=== PATIENT | male | born 1970 | race Caucasian/White ===

== ENCOUNTER 2016-09-13 06:26 | Observation (INO) | payer OTHER ==
--- NOTE | ~2016-09-13 | CT71 ---
[facility] A Service [facility] RADIOLOGY TEXT RESULTS PATIENT: ROBERT JENKINS LOCATION: [facility] 331- : 72 UNIT #: [id number] AGE: [address]: Esmer Colvin MD SEX: M ORDER DR: [id number] [address] [address] [id number] I MR#: [id number] Acc #: [id number] NAME: ROBERT JENKINS : 1970 SEX: M STUDY DATE/TIME: 09/13/2016 7:54 UNIT: CEDOF ROOM: 85851 STUDY DESCRIPTION: CT Head Wo Contrast Attending Physician: Esmer Colvin M.D. Ordering Physician: Ilan Westfall M.D. Primary Care Physician: Jitendra Wakefield M.D. MEDICAL IMAGING REPORT This report is preliminary unless electronic signature is present EXAM Head CT no contrast, 09/13/2016 PROCEDURE Axial unenhanced head CT. This CT exam was performed with one or more of the following radiation dose reduction techniques: automatic exposure control, adjustment of mA and/or kV according to patient size, and iterative reconstruction. COMPARISON None HISTORY Headache with left facial numbness since September 12, 2016. Transient episode of left monocular vision loss, now resolved. FINDINGS There is no intracranial hemorrhage or mass. There is no hydrocephalus or extraaxial fluid collection. The brain is structurally normal and brain parenchymal density is normal. The extracranial soft tissues, including the orbital and ocular soft tissues appear normal. The skull base and calvaria are normal. IMPRESSION Normal negative unenhanced head CT. Dictated by... Alon Yip M.D. [facility] A Service [facility] RADIOLOGY TEXT RESULTS PATIENT: ROBERT JENKINS LOCATION: [facility] 331- : 74 UNIT #: [id number] AGE: [address]: Esmer Colvin MD SEX: M ORDER DR: THIS IS AN ELECTRONICALLY VERIFIED REPORT Alon Yip M.D. at 09/15/2016 2:17 PM DRE/jose f TD: 09/13/2016 09:15 JOB #: [id number] MEDICAL IMAGING REPORT Page 1 of 1 COPY
--- NOTE | ~2016-09-13 | DS ---
Unit #: [id number] #: [id number] Patient: ROBERT JENKINS [id number] [address] [address] [id number] I MR#: [id number] NAME: ROBERT JENKINS ROOM: 331 Age: 46 Sex: M Admission Date: 09/13/2016 : 1970 Discharge Date: 09/13/2016 Attending Physician: Esmer Colvin M.D. Primary Care Physician: Jitendra Wakefield M.D. DISCHARGE SUMMARY ADDENDUM ADDITIONAL DISCHARGE DIAGNOSES Small mass lesion of the sella. The patient will follow up with Dr. Song regarding possible TIA versus atypical migraine, as well as mass lesion in the sella. He was given an order for MRI of the sella with and without contrast to get an as outpatient by Dr. Lopez. Dictated by... Darius Baum/krish TD: 09/13/2016 21:12 JOB #: [id number] DISCHARGE SUMMARY Page 1 of 1 X Esmer Colvin MD X DISCHARGE SUMMARY
--- NOTE | ~2016-09-13 | EKG ---
PATIENT: ROBERT JENKINS UNIT #: [id number] Ventricular Rate: 58 BPM Atrial Rate: 58 BPM P-R Interval: 132 ms QRS Duration: 94 ms Q-T Interval: 402 ms QTC Calculation(Bezet): 394 ms Calculated R [place]: -37 degrees Calculated T [place]: 1 degrees Diagnosis Line: Sinus bradycardia Diagnosis Line: Left axis deviation Diagnosis Line: Incomplete right bundle branch block Diagnosis Line: Abnormal ECG Diagnosis Line: No previous ECGs available Diagnosis Line: Confirmed by BENJAMIN GREEN MD ([id number]) on 09/14/2016 Diagnosis Line: 6:29:45 PM INTERPRETING MD: PETER MOHR
--- NOTE | ~2016-09-13 | CT23 ---
[facility] A Service of [facility] RADIOLOGY TEXT RESULTS PATIENT: ROBERT JENKINS LOCATION: [place] [address]- : 74 UNIT #: [id number] AGE: [address]: Esmer Colvin MD SEX: M ORDER DR: [id number] [address] [address] [id number] I MR#: [id number] Acc #: [id number] NAME: ROBERT JENKINS : 1970 SEX: M STUDY DATE/TIME: 09/13/2016 10:23 UNIT: [facility] ROOM: 68756 STUDY DESCRIPTION: CT Angio Neck Attending Physician: Esmer Colvin M.D. Ordering Physician: Esmer Colvin M.D. Primary Care Physician: Jitendra Wakefield M.D. MEDICAL IMAGING REPORT This report is preliminary unless electronic signature is present EXAM CT angiogram of the neck HISTORY FINDINGS Please see CT angiogram of the head for results. Dictated by... Zoie Beltran M.D. THIS IS AN ELECTRONICALLY VERIFIED REPORT Zoie Beltran M.D. at 09/13/2016 2:30 PM Wilfred TD: 09/13/2016 12:10 JOB #: [id number] MEDICAL IMAGING REPORT Page 1 of 1 COPY
--- NOTE | ~2016-09-13 | MR18 ---
[facility] A Service of [facility] & [facility] RADIOLOGY TEXT RESULTS PATIENT: ROBERT JENKINS LOCATION: [facility] 331-01 : 74 UNIT #: [id number] AGE: [address]: Esmer Colvin MD SEX: M ORDER DR: [id number] [facility] [address] [place], [place] [address] [id number] I MR#: [id number] Acc #: [id number] NAME: ROBERT JENKINS : 1970 SEX: M STUDY DATE/TIME: 09/13/2016 12:09 UNIT: [address] ROOM: [facility] STUDY DESCRIPTION: MR Brain Wo Contrast Attending Physician: Esmer Colvin M.D. Ordering Physician: Esmer Colvin M.D. Primary Care Physician: Jitendra Wakefield M.D. MRI CENTER REPORT This report is preliminary unless electronic signature is present. EXAM Brain MRI without HISTORY TIA, episode of facial paresthesia and abnormal vision last evening at about 08:00 p.m. He lost vision completely and in his left eye lasting for a few seconds and awoke this morning with left-sided facial numbness. COMMENT MRI of the brain was performed without contrast using routine 1.5T imaging technique. There is earlier head CT from the same day. There is no evidence for a recent ischemic insult on the diffusion series. There is no MRI evidence for intracranial hemorrhage. There is a lesion in the posterior aspect of the sella about 3 mm AP dimension 5 mm SI dimension and 7-8 mm ML dimension. It is not fully characterized. It could be a cystic or solid lesion such as a pituitary cyst or microadenoma. Please correlate for any clinical evidence of endocrine abnormality and please correlate with a followup MRI of the sella with and without contrast. It does not appear to result in mass effect upon adjacent structures though there may be some mild bony remodeling of the posterior clinoid. This is probably unrelated to current presentation. The ventricles are normal in size and configuration. Albarran-white junction is essentially age-appropriate. There is minor mucosal disease in the ethmoid air cells and polypoid mucosal disease in the maxillary antra but there is no sinus air-fluid level. The major intracranial flow voids are maintained. Borderline volume loss for age group. No other possible intracranial mass lesion is suspected. IMPRESSION 1. There is no evidence for a recent ischemic insult on the diffusion STS. [facility] A Service of [facility] & [facility] RADIOLOGY TEXT RESULTS PATIENT: ROBERT JENKINS LOCATION: [facility] 331-01 : 74 UNIT #: [id number] AGE: [address]: Esmer Colvin MD SEX: M ORDER DR: series. 2. There is a small mass lesion in the posterior aspect of the sella which is currently incompletely characterized but could be a small microadenoma or pituitary cyst and it should be further characterized with an MRI of the sella with and without contrast. Please correlate as well for clinical evidence of endocrine abnormality. 3. Paranasal sinus disease without sinus air-fluid level. 4. Borderline volume loss for age group. STAT * RESULT Dictated by... Zoie Beltran M.D. THIS IS AN ELECTRONICALLY VERIFIED REPORT Zoie Beltran M.D. at 09/13/2016 2:31 PM BRUNO/lisa TD: 09/13/2016 13:00 JOB #: [id number] MRI CENTER REPORT Page 1 of 1 COPY
--- NOTE | ~2016-09-13 | CO ---
Unit #: [id number] #: [id number] Patient: ROBERT JENKINS [id number] [facility] [address] [facility] [place], [place] [address] [id number] I MR#: [id number] NAME: ROBERT JENKINS ROOM: 331 Age: 46 Sex: M Admission Date: 09/13/2016 : 1970 Attending Physician: Esmer Colvin M.D. Primary Care Physician: Jitendra Wakefield M.D. Consultation Date: 09/13/2016 CONSULTATION REPORT CONSULTING PHYSICIAN Dr. Esmer Colvin REASON FOR CONSULT Abnormal vision and paresthesia. PATIENT IDENTIFICATION This is a 46-year-old, right handed, male evaluated initially in the ER T1 and then followup in room 331 at [facility]. SOURCE OF INFORMATION Obtained from the patient as well as medical record. HISTORY OF PRESENT ILLNESS This is a very pleasant 46-year-old, right handed, male with no prior significant past medical history other than migraine headaches, who presents to [facility] with complaints of vision changes and left facial numbness. The patient states that he was in his usual state of health until the day prior to admission whenever he was sitting down watching TV. He states that he was watching Jeopardy when he suddenly felt as though he had vision loss in his left eye. He initially felt as though it was complete vision loss in his left eye though when Dr. Lopez discussed with him he was more clear on it being left sided vision loss affecting both eyes, more consistent with a left hemianopia than a left amaurosis fugax. He states that he felt as though he was getting a mild headache but reports that it was not like a typical migraine for him in that the symptoms went away. He decided not to come to the ER as symptoms had resolved though he states he felt very concerned but he never experienced symptoms like that before. He denies any exacerbating or alleviating factors or any other associated symptoms. He states that he went to bed though he states he woke up a few time sin the middle of the night and just "didn't feel right." He woke up around 4:30 in the morning to get ready for work and states that he noticed left facial tingling. He states it felt as though the left lower portion of his face was numb and felt as though he had some "dental work." He states that symptoms improved but did not fully resolve. Thus, he decided to come to the ER for further evaluation. He states the symptoms are essentially resolved currently. He states that he has never experienced symptoms like this and he has had some peripheral blurred vision with headaches in the past but reports that he knows exactly how it feels and that he is going to get a headache whenever he exhibits his symptoms. He states that this was completely different in that he had not experienced these symptoms before. He denies any speech or swallowing difficulty, any chest pain, shortness Unit #: [id number] #: [id number] Patient: ROBERT JENKINS of . He does report that he felt as though he may have had some palpitations when he experienced the vision loss but he states that he also felt anxious. He denies any focal arm or leg paresthesia or weakness though he reports that he felt as though his left leg didn't feel right when he experienced the vision changes. Again, all of these symptoms have resolved. He was admitted to [facility] for further workup and evaluation given his focal presentation and concern for ischemic event. He underwent an extensive workup here. He was seen this morning by myself and then re-evaluated by Dr. Lopez today as well. Dr. Lopez had a long discussion with the patient. Please see his note for details. MRI of the brain did not show any acute ischemic changes. It did show a small mass lesion in the posterior aspect of the patella, currently incompletely characterized but could be a small microadenoma or pituitary cyst. It could be further characterized with an MRI of the sella with and without contrast. It also, surprisingly, shows some borderline volume loss for his age group. He underwent a CT angiogram of the head and neck in the ER that shows no stenosis at either carotid bifurcation by NASCET criteria with both vertebral arteries patent and fairly balanced and both supply the basilar artery. 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 The patient, of note on this exam, does appear to have a tiny anterior communicator and small bilateral posterior communicators with what are probably infundibula at the origins of the right and left posterior communicators. The left sided infundibulum is a bit more rounded than typical and, for this reason, followup over residential is recommended. 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 His initial CT of the head without contrast in the ER was normal. He also had a chest x-ray done in the ER that was negative. Given the patient's presentation nand evaluation, Dr. Lopez recommended the patient undergo a transesophageal echocardiogram. Given his young age and focal recurrent event x2, Dr. Lou did a transesophageal echocardiogram today which showed left ventricular systolic function mildly reduced with LVEF of 45%, mild global hypokinesis of the left ventricle. Bubble study was performed with right to left shunt noted across the intraatrial septum consistent with patent foramen ovale. Patent foramen ovale with right to left shunt was visualized. No clot in the left atrial appendage, no vegetation. Normal valvular function. No evidence of pericardial effusion. Of note, also on the SAM it did show moderate to severe atherosclerotic plaque in the aorta with no protruding atheroma or clot into the area of the lumen. I did discuss these results personally with Dr. Lou and the finding of vascular sclerosis, especially given his age, is concerning. However, there is no protruding atheroma into the aortic lumen. Given his ejection fraction, she has recommended and started him on a low dose [place] inhibitor. He does have build-up of atherosclerosis inside the aorta but, given there is no protruding atheroma or fresh clot in the aortic lumen, anticoagulation is not recommended. The patient has been started on a statin as well as aspirin. PAST MEDICAL HISTORY Migraine headaches. Otherwise, the patient denies any significant past medical history. He states that he does not see a primary care physician on a regular basis and has not sought treatment in the last couple of years since he last was treated for a left inguinal hernia repair and umbilical hernia repair. He also has a history of appendectomy. Unit #: [id number] #: [id number] Patient: ROBERT JENKINS S FAMILY HISTORY Positive for stroke in his paternal grandfather, not at a young age. Also, positive for his dad having lung cancer. SOCIAL HISTORY The patient is and lives with his . He quit smoking about ten years ago. He does drink alcohol on the weekend and does admit that he may drink up to 12 beers on a Sunday but states he has never had any episodes of binge drinking or gone through withdrawal. He denies drinking through the week. He works at the [employer]. He denies illicit drug use. ALLERGIES No known drug allergies. HOME MEDICATIONS None. He states he takes occasional ibuprofen as needed for headaches but, otherwise, does not take any [id number] prescription medications. REVIEW OF SYSTEMS Fourteen point review of systems is done. Pertinent positives are as listed above, otherwise negative. He denies any recent illness or injury, change in weight or routine. Otherwise, positives as discussed above. PHYSICAL EXAMINATION VITAL SIGNS: Temperature 98.5, pulse 55, respirations 20, blood pressure 133/84. His diastolic was slightly over 100 in the ER. Oxygen saturation 98%. Height 5 feet 10 inches, weight 175 pounds. BMI 25. NEUROLOGICAL EXAM: The patient is currently awake, alert and oriented to person, place and time as well as events. No right/left confusion, no finger agnosia. No aphasia, dysarthria or apraxia. CRANIAL NERVE EXAM: He demonstrates full mcfarlane of vision. Eyes are conjugate without ptosis or nystagmus. Extraocular movements are intact. Sensation of face and scalp is intact. Strength of muscles of facial expression is intact. Hearing is intact to finger rub and conversation. Tongue is midline, uvula is midline. Palate elevation is normal. Head turning and shoulder shrug is unremarkable. Neck is supple. MOTOR EXAM: He demonstrates normal bulk and tone. Strength is equal, 5 out of 5, in all extremities. SENSORY EXAM: Intact. No extinction appreciated. GAIT AND ROMBERG: Deferred. REFLEXES: 1 out of 4. Toes are equivocal. COORDINATION: Unremarkable. DIAGNOSTIC STUDIES IMAGING: Please see above. LABORATORY: ESR 6, ERP less than 0.5, troponin less than 0.03. PT 10.5, INR 1.0, PTT 25.5. BMP unremarkable. Urine drug screen unremarkable. CBC - unremarkable. TSH 1.92. IMPRESSION 1. Vision changes most concerning for left visual field cut and left Unit #: [id number] #: [id number] Patient: ROBERT JENKINS S facial paresthesia most consistent with right hemispheric transient ischemic attack, concerning for two events: Differential diagnosis to include transient ischemic attack versus migraine. MRI of the brain is negative for any evidence of acute or subacute infarct. It does show an incidental finding and possible pituitary adenoma. 2. Abnormal MRI of the brain/incidental pituitary lesion: Recommend followup imaging as discussed above. 3. Abnormal CT angiogram with incidental findings of infundibula. Recommend outpatient MR angiogram of [place] as discussed above. 4. Atherosclerosis of aorta with no protruding aortic atheroma or clot. 5. Mildly reduced ejection fraction of 45%. 6. Patent foramen ovale. 7. Reformed smoker for 10+ years. PLAN The case was discussed with Dr. Lopez. Also, SAM was discussed with Dr. Lou. The patient was seen by Dr. Lopez. Please see his extensive note in the chart. I saw the patient twice as well. Extensive workup has been ordered. He certainly is young at 46 years of age to be exhibiting symptoms concerning for an ischemic event. His MRI of the brain is negative for any acute or subacute infarct but abnormal findings are as discussed above and recommend outpatient followup with MRI of the pituitary and MR angiogram of [place]. Dr. Lopez has given him specific instructions for followup with neurology. He is to call to make an appointment with Dr. Pa Song and has been given instructions on recommendation for plan of care. Dr. Lopez has ordered a hypercoagulable workup which will also need to be followed up on and I have also ordered a B12 and folate. Given his differential diagnosis and given his SAM findings, again, he is to follow up with Dr. Lou with cardiology and an appointment has already been made with her to have further cardiology workup. He is recommended to have a Holter monitor. He has been started on a low dose [place] inhibitor. We have started him on full dose aspirin and also Lipitor 40 mg p.o. q. h.s. This has been explained to the patient at length. At this time, no further workup is indicated as an inpatient. We are treating him for possible TIA and further workup pending re-evaluation with outpatient neurology. Again, hypercoagulable workup has been ordered and cardiology evaluation as an outpatient has been scheduled given his abnormal SAM findings. At this time, anticoagulation with warfarin is not indicated. Will start the patient on full dose antiplatelet therapy and extensive statin therapy and recommend that he continue with smoking cessation. He states that he has not smoked in ten years. Hypercoagulable workup has been ordered and is pending and also recommend outpatient MR imaging for normal MRI and abnormal CTA as discussed above. The patient is agreeable and wishes to be discharged home. He is neurologically back to baseline. Thus, physical therapy and speech therapy are not indicated prior to discharge. Please see note per Dr. Lopez. Please see orders. Please call for any questions or issues. We thank you very much for allowing us to assist in the care of this patient. Dictated by... Jennifer Benoit A.P.R.N. for Cassi Lopez M.D. Unit #: [id number] #: [id number] Patient: ROBERT JENKINS KSM/df TD: 09/14/2016 06:06 JOB #: [id number] CONSULTATION REPORT Page 1 of 1 X Jennifer Benoit [employer] X CONSULTATION REPORT
--- NOTE | ~2016-09-13 | EKG ---
PATIENT: ROBERT JENKINS UNIT #: [id number] Ventricular Rate: 52 BPM Atrial Rate: 52 BPM P-R Interval: 136 ms QRS Duration: 96 ms Q-T Interval: 418 ms QTC Calculation(Bezet): 388 ms P [place]: -26 degrees Calculated R [place]: -36 degrees Calculated T [place]: 4 degrees Diagnosis Line: Sinus bradycardia Diagnosis Line: Left axis deviation Diagnosis Line: Minimal voltage criteria for LVH, may be normal Diagnosis Line: variant Diagnosis Line: Abnormal ECG Diagnosis Line: No previous ECGs available Diagnosis Line: Confirmed by BENJAMIN GREEN MD ([id number]) on 09/14/2016 Diagnosis Line: 6:35:56 PM INTERPRETING MD: PETER MOHR
--- NOTE | ~2016-09-13 | HP ---
Unit #: [id number] #: [id number] Patient: ROBERT JENKINS [id number] [facility]. [place], [place] [address] [id number] MR#: [id number] NAME: ROBERT JENKINS. ROOM: 331 Age: 46 Sex: M Admission Date: 09/13/2016 : 1970 Attending Physician: Esmer Colvin M.D. Primary Care Physician: Jitendra Wakefield M.D. HISTORY AND PHYSICAL CHIEF COMPLAINT Abnormal vision. HPI The patient is a 46-year-old male with a past medical history of migraine headaches who presented to the emergency department for evaluation of the above. The patient states that he was in his usual state of health until the evening prior to admission when he had the sudden onset of loss of vision in the left eye. He states that he was watching Jeopardy and it was like a curtain went from left to right in front of his left eye. He states that it lasted for 5-10 seconds and resolved spontaneously. He states that he has had abnormal vision in the past that involved his peripheral vision in association with migraine aura. This morning he awoke (1) numbness involving the left cheek. That has improved, but is still present. He presented to the emergency department for further evaluation. In the emergency department, a CT of the head was done and showed nothing acute. Laboratory essentially unremarkable. He is being admitted to [facility] for evaluation and further treatment. PAST MEDICAL HISTORY 1. No hospital admissions as an adult. 2. Migraine headaches. He states that he typically gets 4-6 a year. PAST SURGICAL HISTORY 1. Left inguinal hernia repair. 2. Umbilical hernia repair. 3. Appendectomy. SOCIAL HISTORY The patient lives with his . He quit smoking. He drinks alcohol on the weekends. He states that he may drink up to 12 beers on a Sunday, but has never gone through withdrawal. He works at [employer]. FAMILY HISTORY Notable for his dad having lung cancer. His grandfather had a stroke. ALLERGIES No known allergies. HOME MEDICATIONS None. REVIEW OF SYSTEMS Unit #: [id number] #: [id number] Patient: ROBERT JENKINS A complete review of systems is negative, except as indicated in the HPI. DIAGNOSTIC STUDIES IMAGING: CT of the head shows nothing acute. LABORATORY: Comprehensive metabolic panel is completely normal. Urine tox screen is negative. Complete blood count is completely normal. PHYSICAL EXAM VITAL SIGNS: Temperature is 98.7, pulse 64, respirations 17, blood pressure 145/94, and oxygen saturation is 96% on room air. GENERAL: The patient is a pleasant, male who is awake and alert in no acute distress. HEENT: The head is atraumatic. Mucous membranes are moist. NECK: Supple. Trachea is midline. CARDIOVASCULAR: Regular rate and rhythm. LUNGS: Clear to auscultation bilaterally with no increased work of breathing. ABDOMEN: Soft and nontender with bowel sounds present in all four quadrants. EXTREMITIES: Nontender with no pedal edema. NEUROLOGIC: The patient is awake and alert. He follows commands. Sensation of the face is subjectively intact. There is no facial asymmetry. Tongue is midline. There is no appreciable pronator drift. 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 SKIN: Skin of examined areas is warm and dry. PSYCH: Mood and affect are normal. The patient is cooperative. ASSESSMENT The patient is a 46-year-old male with: 1. Vision loss involving the left eye, amaurosis fugax. A CT of the head was negative. 2. Paresthesias involving left face. 3. History of migraines. 4. Former smoker. PLAN 1. Admit to intermediate level for observation. 2. Check MRI of the brain without contrast. 3. CT angiogram of the head and neck. 4. (2) per neurology. 5. Consult neurology regarding amaurosis fugax. 6. Additional workup and consultants based on above. 7. Repeat labs in the morning. 8. Aspirin if the patient has not already received. Dictated by Darius Baum/doroteo TD: 09/13/2016 13:08 JOB #: [id number] Unit #: [id number] #: [id number] Patient: ROBERT JENKINS HISTORY AND PHYSICAL Page 1 of 1 X Esmer Colvin MD X HISTORY AND PHYSICAL
--- NOTE | ~2016-09-13 | CR72 ---
[facility] A Service of [facility] RADIOLOGY TEXT RESULTS PATIENT: ROBERT JENKINS LOCATION: CEDOF : 74 UNIT #: [id number] AGE: [address]: Esmer Colvin MD SEX: M ORDER DR: [id number] [id number] [facility]. [place], [place] [address] [id number] MR#: [id number] Acc #: [id number] NAME: ROBERT JENKINS : 1970 SEX: M STUDY DATE/TIME: 09/13/2016 7:40 UNIT: ROXIE ROOM: STUDY DESCRIPTION: CR Chest Single View Portable Attending Physician: Mabel Davis A.P.R.N. Ordering Physician: Ed Doctor [id number] [facility] Primary Care Physician: Jitendra Wakefield M.D. MEDICAL IMAGING REPORT This report is preliminary unless electronic signature is present EXAM Frontal chest, 09/13/2016 INDICATION 46-year-old male with headache. Left-sided facial numbness, altered mental status and shortness of air that began this morning. TECHNIQUE Frontal chest was performed. COMPARISON There is a comparison on the archive from September 2013 that cannot be retrieved due to continuing computer malfunction. There are no comparisons at this time. FINDINGS Cardiac silhouette within normal limits. The vascularity is normal. Lungs are clear. No pneumothorax. Probable retained opaque metallic foreign body projects over the upper abdomen on the left. IMPRESSION Negative frontal chest. We have no comparisons at the time of this dictation. Dictated by... Scar Rodríguez M.D. THIS IS AN ELECTRONICALLY VERIFIED REPORT Scar Rodríguez M.D. at 09/13/2016 9:55 AM Jayro TD: 09/13/2016 09:10 JOB #: [id number] [facility] A Service [facility] RADIOLOGY TEXT RESULTS PATIENT: ROBERT JENKINS LOCATION: CEDOF : 74 UNIT #: [id number] AGE: [address]: Esmer Colvin MD SEX: M ORDER DR: MEDICAL IMAGING REPORT Page 1 of 1 COPY
--- NOTE | ~2016-09-13 | DS ---
Unit #: [id number] #: [id number] Patient: ROBERT JENKINS [id number] [address] [address] [id number] I MR#: [id number] NAME: ROBERT JENKINS ROOM: 331 Age: 46 Sex: M Admission Date: 09/13/2016 : 1970 Discharge Date: 09/13/2016 Attending Physician: Esmer Colvin M.D. Primary Care Physician: Jitendra Wakefield M.D. DISCHARGE SUMMARY HISTORY OF PRESENT ILLNESS The patient is a 46-year-old male with a past medical history of migraine headaches who presented to the emergency department for abnormal vision. Please see History and Physical for details. The patient was seen in consultation by Neurology. An MRI of the brain was done, as well as CT angiogram of the head and neck. He also underwent SAM that showed atherosclerotic plaque and an ejection fraction of 45%. Cardiology and Neurology both agreed that he was stable for discharge. He is being discharged home. DISCHARGE DIAGNOSES 1. Vision loss involving the left eye concerning for possible transient ischemic attack versus atypical migraine. 2. Paresthesias involving the left face again concerning for possible transient ischemic attack versus atypical migraine. 3. Atherosclerosis of the aorta. 4. Congestive heart failure with an ejection fraction of 45%. DISCHARGE MEDICATIONS 1. Aspirin 325 mg p.o. daily. 2. Lisinopril 5 mg p.o. daily. 3. Lipitor 10 mg p.o. daily. DISCHARGE CONDITION Stable. DISCHARGE DISPOSITION Home. DISCHARGE FOLLOWUP 1. With Cardiology on November 24. 2. [address] Dr[address] Song per Neurology. 3. With primary care physician in one to two weeks. 1. Dictated by... Darius Baum/krish TD: 09/13/2016 21:06 JOB #: [id number] Unit #: [id number] #: [id number] Patient: ROBERT JENKINS DISCHARGE SUMMARY Page 1 of 1 X Esmer Colvin MD X DISCHARGE SUMMARY
--- NOTE | ~2016-09-13 | CT17 ---
[facility] A Service of [facility] RADIOLOGY TEXT RESULTS PATIENT: ROBERT JENKINS LOCATION: A 331-01 : 74 UNIT #: [id number] AGE: [address]: Esmer Colvin MD SEX: M ORDER DR: [id number] [facility] [address] [facility]. [place], [place] [address] [id number] I MR#: [id number] Acc #: [id number] NAME: ROBERT JENKINS : 1970 SEX: M STUDY DATE/TIME: 09/13/2016 10:23 UNIT: CEDOF ROOM: 54889 STUDY DESCRIPTION: CT Angio Head Attending Physician: Esmer Colvin M.D. Ordering Physician: Esmer Colvin M.D. Primary Care Physician: Jitendra Wakefield M.D. MEDICAL IMAGING REPORT This report is preliminary unless electronic signature is present EXAM CT angiogram of the head and neck HISTORY Headache behind both eyes, left-sided facial numbness since 09/12/2016. No vision in left eye for 10 seconds on 09/12/2016. Amaurosis fugax. No history of cancer. No history of trauma. TECHNIQUE CT angiography of the head and neck vessels performed during the intravenous administration of 100 mL of Isovue 370. Imaging acquired in the axial plane followed by multiple reconstructed and reformatted images for the purpose of 3-D CT angiography of the head and neck vessels. This CT exam was performed with one or more of the following radiation dose reduction techniques: automatic exposure control, adjustment of mA and/or kV according to patient size, and iterative reconstruction. COMPARISON Head CT from earlier today. No radiologist was notified when the CT angiogram was read ready. FINDINGS CT ANGIOGRAM NECK: The aortic arch branch pattern is normal. There is hemodynamically significant narrowing at great vessel origins. The right carotid system is widely patent. By NASCET criteria, 0% stenosis at the right carotid bifurcation. The left carotid system is widely patent and by NASCET criteria 0% stenosis at the left carotid bifurcation. Left vertebral artery is widely patent. Right vertebral artery is widely patent. [facility] A Service of [facility] RADIOLOGY TEXT RESULTS PATIENT: ROBERT JENKINS LOCATION: C3A 331-01 : 74 UNIT #: [id number] AGE: [address]: Esmer Colvin MD SEX: M ORDER DR: Intracranial circulation evaluation shows no intracranial vascular cutoff. There is a tiny anterior communicator present. There are tiny bilateral posterior communicators with infundibulum type structure seen on the right and probable infundibulum on the left. Left-sided infundibulum is a little bit more rounded and I would therefore recommend a follow-up MR angiogram in a year to reassess for any changes. 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 No focal central stenosis. Otherwise no suspicion for possible intracranial aneurysm. Dural venous sinuses are patent. Mild paranasal sinus disease. No sinus air fluid level. CT angiography is not sensitive for aneurysm at the level of the skull base. This study is not intended to be sensitive for evaluation of ophthalmic arteries. They are too small to be accurately evaluated on a CT angiogram. Flow can be seen within the vessels but otherwise they cannot be evaluated further. IMPRESSION 1. By NASCET criteria, 0% stenosis at either carotid bifurcation. Both vertebral arteries are patent and fairly balanced and both supply the basilar. 2. There is no intracranial vascular cutoff or focal central stenosis. 3. The patient has a tiny anterior communicator and there are small bilateral posterior communicators with what are probably infundibulae at the origins of the right and left posterior communicators. The left-sided infundibulum is a bit more rounded than typical and for this reason I would recommend follow-up over the penitentiary. Recommend first follow-up study to be an MR angiogram [place] at one year and I would suggest consideration for terminal press operator follow-up to confirm penitentiary stability of the vascular findings. 4. Paranasal sinus disease without sinus air fluid level. STAT * RESULT Dictated by... Zoie Beltran M.D. THIS IS AN ELECTRONICALLY VERIFIED REPORT Zoie Beltran M.D. at 09/13/2016 2:31 PM BRUNO/jose f TD: 09/13/2016 12:11 JOB #: [id number] MEDICAL IMAGING REPORT [facility]. [facility] A Service of [facility] RADIOLOGY TEXT RESULTS PATIENT: ROBERT JENKINS LOCATION: [place] [address] : 74 UNIT #: [id number] AGE: [address]: Esmer Colvin MD SEX: M ORDER DR: Page 1 of 1 COPY
[~2016-09-13 06:26] MED LIST: NO MEDICATIONS
[2016-09-13 07:41] LABS: BASOPHIL# 0.1 X10e3 (0-0.3); BASOPHIL% 1.2 % (0-2.5); EOSINOPHIL# 0.1 X10e3 (0-0.7); EOSINOPHIL% 1.6 % (0.0-7.0); HEMATOCRIT 44.8 % (38.0-50.0); LYMPHOCYTE# 2.5 X10e3 (1.0-3.5); LYMPHOCYTE% 38.7 % (17.0-45.0); MEAN CELL VOLUME 88.5 FL (83-96); MEAN CORPUSCULAR HEMOGLOBIN 29.6 PG (28-34); MEAN CORPUSCULAR HGB CONC 33.4 g/dL (30-36); MEAN PLATELET VOLUME 7.7 FL (6.5-11.5); MONOCYTE# 0.6 X10e3 (0-1.0); MONOCYTE% 8.8 % (3.0-12.0); NEUTROPHIL# 3.2 X10e3 (1.5-7.1); NEUTROPHIL% 49.7 % (40-75); PLATELET COUNT 289 X10e3 (140-420); RED BLOOD COUNT 5.06 X10e (3.90-5.60); RED CELL DISTRIBUTION WIDTH 12.7 % (11.0-15.5); WHITE BLOOD COUNT 6.5 X10e3 (4.0-10.5)
[2016-09-13 07:42] LABS: DIFF IND NO
[2016-09-13 08:15] LABS: AMPHETAMINE NEG (NEG); BARBITURATES NEG (NEG); BENZODIAZEPINES NEG (NEG); COCAINE NEG (NEG); MARIJUANA NEG (NEG); OPIATES NEG (NEG); TRICYCLIC ANTIDEPRESSANTS NEG (NEG); U METHADONE NEG (NEG)
[2016-09-13 08:36] LABS: ALKALINE PHOSPHATASE 51 U/L (32-92); ALT (SGPT) 22 U/L (10-40); AST (SGOT) 23 U/L (10-42); BILIRUBIN,TOTAL 0.7 mg/dL (0.2-2.0); BLOOD UREA NITROGEN 15 mg/dL (9-23); BUN/CREATININE RATIO 18.75; CALCIUM SERUM 9.3 mg/dL (8.4-10.2); CARBON DIOXIDE 28 mmol/L (22-31); CHLORIDE 105 mmol/L (100-111); CREATININE SERUM 0.8 mg/dL (0.6-1.4); GLOM FILT RATE Estimated 108.7 mL/min (>60); GLUCOSE FASTING 103 mg/dL (70-110); POTASSIUM 3.9 mmol/L (3.5-5.1); PROTEIN TOTAL SERUM 6.7 g/dL (6.0-8.3); SODIUM 139 mmol/L (135-145)
[2016-09-13 08:40] LABS: BILIRUBIN, DIRECT <0.1 mg/dL (0.0-0.2); BILIRUBIN,INDIRECT 0.6 mg/dL (0.0-0.9)
[2016-09-13 14:03] LABS: PARTIAL THROMBOPLASTIN TIME 25.5 SECONDS (23.5-31.3); PROTHROMBIN TIME (PATIENT) 10.5 SECONDS (9.6-11.5)
[2016-09-13 14:54] LABS: %MB 1.1 % (0.0-4.0)
[2016-09-13] MEDS ORDERED: LIPITOR40 MG PO (18:52)
[2016-09-13] MEDS ORDERED: LISINOPRIL PO (18:52)
[2016-09-13] MEDS ORDERED: ASPIRIN PO (19:04)
[2016-09-13 19:15] LABS: FOLATE (FOLIC ACID) >23.6 ng/mL (>5.8)
[2016-09-15 22:59] LABS: PROTEIN C ACTIVITY 88 % (70-180); PROTEIN S 95 % (70-150)
[2016-09-17 04:53] LABS: CARDIOLIPIN IGG (LUPUS) <14 GPL (<=14); CARDIOLIPIN IGM (LUPUS) <12 MPL (<=12); DRVVT CONFIRM Negative (Negative); DRVVT MIX INTERP (LUPUS) Not Indicated (()); HEXAGONAL PHASE CONF (LUPUS) Negative (Negative); IMM PTT LA MIX CORRECTED (()); INCUB PTT LA MIX CORRECTED (()); PROTROMBIN TIME LUPUS 10.6 sec (9.0-11.5); PT (LA MIX STUDY) 10.6 sec (<=11.5); PTT MIX INTERP Has been added (()); PTT-LA 151 sec (<=40); PTT-LA SCREEN (LUPUS) 151 sec (<=40); THROMBIN TIME LUPUS 18 sec (13-19); dRVVT SCREEN (LUPUS) 48 sec (<=45)
== END 2016-09-13 20:51 | disposition home or self-care (01) | DRG 123 ==
LOC: CED 06:26 → CEDOF 09:17 → CED 09:24 → C3A PCU 09:24 → CEDOF 09:24 → C3A PCU 12:49
PROVIDERS: Family Medicine; Nurse Practitioner; Psychiatry & Neurology Neurology
DX: G45.3 Amaurosis fugax (principal); R20.8 Other disturbances of skin sensation; I70.0 Atherosclerosis of aorta; I50.9 Heart failure, unspecified; Q21.1 Atrial septal defect; M89.8X8 Other specified disorders of bone, other site; Z87.891 Personal history of nicotine dependence
CPT/HCPCS: 36415; 70450; 70496; 70498; 70551; 71010; 80048; 80061; 80076; 80307; 81291; 82308; 82550; 82553; 82607; 82746; 82947; 83036; 84443; 84484; 85025; 85301; 85303; 85306; 85597; 85598; 85610; 85613; 85652; 85670; 85730; 86140; 86146; 86147; 86148; 93005; 93312; 99285; G0378; J2250; J3010; Q9967